=== PATIENT | male | born 1960 | race Caucasian/White ===

== ENCOUNTER → 2021-03-20 | Outpatient (CLI) | payer MEDICARE, OTHER ==
[~2021-03-20] MED LIST: ADVAIR 500-501 EACH INH; ALBUTEROL0.63 MG/3 INH; ALL DAY ALLERGY10 M2 PO; BUDESONIDE0.5 MG/2 M INH; DALIRESP500 MCG PO; DIAMOX 250 MG250 MG PO; EYE ITCH RELIEF5 ML OP; HYDROXYZINE HCL25 MG PO; PROAIR HFA8.5 GM INH; SINGULAIR10 MG PO; SPIRIVA18 MCG INH; XARELTO20 MG PO
== END ==
LOC: EXRD 11:34
DX: J44.9 Chronic obstructive pulmonary disease, unspecified (principal); R05.9 Cough, unspecified
CPT/HCPCS: 71046

== ENCOUNTER → 2022-01-14 | Outpatient (CLI) | payer MEDICARE, OTHER | LOC: KOH-I 13:47 → CT 14:00 | DX: F17.210 Nicotine dependence, cigarettes, uncomplicated (principal) | CPT/HCPCS: 71271 ==

== ENCOUNTER → 2022-02-22 | Day surgery (SDC) | payer MEDICARE, OTHER ==
[~2022-02-22] MED LIST changes: +ASPIRIN 325MG325 MG PO; +B12-FOLIC ACID1 EACH PO; +BUSPAR 10MG10 MG PO; +CLARITIN10 M2 PO; +HYDROCHLOROTH12.5 M1 PO; +SPIRIVA RESPIMAT4 GM INH; +VITAMIN C500 M4 PO; +ZESTRIL20 MG PO
== END | disposition home or self-care (01) ==
LOC: OR 06:47
DX: D12.4 Benign neoplasm of descending colon (principal); I11.0 Hypertensive heart disease with heart failure; I50.30 Unspecified diastolic (congestive) heart failure; E78.00 Pure hypercholesterolemia, unspecified; J44.1 Chronic obstructive pulmonary disease with (acute) exacerbation; E11.9 Type 2 diabetes mellitus without complications; F17.210 Nicotine dependence, cigarettes, uncomplicated; Z79.82 Long term (current) use of aspirin; Z79.899 Other long term (current) drug therapy; Z88.0 Allergy status to penicillin; Z88.1 Allergy status to other antibiotic agents; Z72.89 Other problems related to lifestyle
CPT/HCPCS: J2704